=== PATIENT | female | born 1955 | race Caucasian/White ===

== ENCOUNTER 2017-01-14 00:15 | Emergency (ER) | payer OTHER ==
[2017-01-14 01:25] LABS: Hematocrit 42.9 % (37.0-47.0); Mean Cell Volume 92.7 fl (78-100); Mean Corpuscular Hemoglobin 30.2 pg (27-31); Mean Corpuscular Hgb Conc 32.6 g/dl (32-36); Mean Platelet Volume 11.8 fl (6.0-9.5); Neutrophil # 4.4 K/mm3 (1.3-6.0); Neutrophil % 61.3 % (42-75.0); Red Blood Count 4.63 M/mm3 (4.2-5.4); White Blood Count 7.1 K/mm3 (4.0-10.5)
--- NOTE | 2017-01-14 01:27 | ERNOTE ---
Neuro HPI ER Record Date of Service: 01/14/17 Presenting Symptoms: other - dysarthria and weakness onset 30 minutes prior to arrival approximately midnight Time Seen by Provider: 01/14/17 00:46 Source: patient, family Exam Limitations: no limitations Immunizations: IMMUNIZATION HX Immunizations Up to Date Yes History of Influenza Vaccine Yes Hx Pneumococcal Vaccination Yes Allergies/Adverse Reactions: Allergies Allergy/AdvReac Type Severity Reaction Status Date / Time Sulfa (Sulfonamide Allergy Intermediate Hives Verified 01/14/17 01:14 Antibiotics) Home Medications: HOME MEDICATIONS Levothyroxine Sodium [Levoxyl] 88 mcg PO DAILY 01/14/17 [Last Taken Unknown] - History of Present Illness Narrative: Present to ED as a stroke alert her initial glucose was 108. Date (Duration): 01/14/17 Time (Timing): 00:00 Last Date Known Well: 01/14/17 Last Time Known Well: 00:00 Onset: intermittent, better Severity: mild Context: other - patient is a 61-year-old female who has been at its her mother' s bedside for the last several days. Her mother is currently in hospice and just around midnight patient patient became increasingly agitated slurred speech was noted and facial weakness was noted as well. Stroke alert was called and patient brought to the emergency room for evaluation. - Character of Deficits New weakness: Present: facial (lt). Absent: RUE, RLE, LUE, LLE Altered sensation: Absent: RUE, RLE, LUE, LLE Additional Deficits: Present: impaired speech - dysarthria was noted by family. Baseline Cognition: Present: alert, oriented x 4 Baseline Gait: Present: walks w/o assistance Associated Symptoms: Reports: trouble thinking, none - extreme emotional stress due to passing of mother.. Denies: fever/chills, sweating, chest pain, neck/ back pain, headache, seizure, altered mental status Prior Treament: Denies: similar symptoms before - Patient's Past Medical History Patient History - Medical: Anxiety, Hypothyroidism Patient History - Cardiac/Respiratory: Hypertension, Hyperlipidemia, Other Patient History - Cancer: No Hx of Cancer Patient History - Surgical Procedures: Other Patient History - Other: None - Social History Living Situations: spouse Psych History: Hx of Anxiety Smoking Status: Never smoker Have you smoked in the past 12 months: No Do you dip or chew tobacco: No Alcohol Use: none Drug Use: none - Immunizations Immunizations Up to Date: Yes Hx Pneumococcal Vaccination: Yes History of Influenza Vaccine: Yes Physical Exam - Physical Exam General Appearance: Present: wd/wn, alert Head Exam: Present: normal inspection, no evidence of injury Eye Exam: Normal inspection: bilateral, PERRL: bilateral, EOMI: bilateral Ears, Nose, Throat: Present: normal ENT inspection, normal pharynx Neck: Present: normal inspection, nontender Respiratory: Present: no respiratory distress, normal breath sounds Cardiovascular/Chest: Present: regular rate, rhythm, no murmur, normal peripheral pulses Peripheral Pulses: N=norm/S=strong/W=weak/B=bound/A=absent: Carotid (R): Normal , Carotid (L): Normal, Dorsalis-pedis (R): Normal, Dorsalis-pedis (L): Normal Gastrointestinal/Abdominal: Present: normal bowel sounds, nontender, soft Rectal Exam: Present: deferred Back Exam: Present: normal inspection, normal range of motion, no CVA tenderness Extremity Exam: Present: normal inspection Neurological Exam: Present: alert, oriented, normal mood/affect, no motor/ sensory deficits DTR: N=norm/NB=norm/brisk/A=abs/DD=dull/dimin/HC=hyperactive: Bicep (R): Normal , Bicep (L): Normal, Knee (R): Normal, Knee (L): Normal, Ankle (R): Normal, Ankle (L): Normal Skin Exam: Present: normal color, warm/dry [place] Coma Scale - Assess Eye Opening: Spontaneous Motor: Obeys Commands Verbal: Oriented - Total Coma Scale Total: 15 Initial Stroke Assessment - NIH Stroke Scale Level of Consciousness: Alert LOC Questions (Year and Age): Answers both correctly LOC Commands (open/close eyes/fist): Performs both correctly Lateral Gaze Paresis: None Visual Field Loss: No visual loss Facial Palsy: Minor paralysis - left facial Right Arm Motor (10 sec hold): No drift Left Arm Motor (10 sec hold): No drift Right Leg Motor (5 sec hold): No drift Left Leg Motor (5 sec hold): No drift Limb Ataxia (finger/nose heel/toro): Absent If present, ataxia in:: Right arm Sensory Loss (pinprick arms/legs/face): No sensory loss Language Aphasia (description/naming/reading): Mild, yet understandable Dysarthria (speech clarity): Normal articulation Neglect Inattention (visual/tactile/auditory/spatial/person): No neglect - NIH stroke scale 2 Initial Stroke Scale Score:: 2 ED Progress - Results and Orders Patient's Lab Results:: I have reviewed the patient's lab results. Results and Orders: Laboratory Tests 01/14/17 01/14/17 01/14/17 00:10 00:10 00:10 WBC 7.1 RBC 4.63 Hgb 14.0 Hct 42.9 MCV 92.7 MCH 30.2 MCHC 32.6 RDW 13.0 Plt Count 157 MPV 11.8 H Immature Gran % (Auto) 0.10 Immature Gran # (Auto) 0.01 Neutrophils % 61.3 Lymphocytes % 28.3 Monocytes % 6.7 Eosinophils % 3.2 H Basophils % 0.4 Nucleated RBC % 0.0 Neutrophils # 4.4 Lymphocytes # 2.0 Monocytes # 0.5 Eosinophils # 0.2 Absolute Basophils 0.0 PT 10.2 INR (Anticoag Therapy) 0.98 PTT (Alberto) 21.9 L Sodium 143 H Plasma Sodium 143 H Potassium 3.9 Chloride 105 Carbon Dioxide 25.9 Anion Gap 16.0 H BUN 16 Creatinine 1.02 Est GFR (Non-Af Amer) 59 L BUN/Creatinine Ratio 15.7 Random Glucose 119 H Calcium 8.9 Calcium Adj for Albumin 8.7 Total Bilirubin 0.9 AST 28 ALT 34 Alkaline Phosphatase 95 Total Protein 7.6 Albumin 3.9 - Vital Signs Patient's Vital Signs:: I have reviewed the patient's vital signs. Vital Signs: Vital Signs 01/14/17 00:55 Pulse Rate 81 Respiratory 20 Rate Blood Pressure 175/82 O2 Sat by Pulse 98 Oximetry - X-Ray X-Ray #1 X-Ray: chest Interpretation: Interp. by me, Reviewed by me X-ray Comments: [facility] PATIENT RADIOLOGY STUDY REPORT Patient Patient Name:OSCAR LUCIO Date: 1955 Sex: F Order Number: [id number] Unique Exam ID: [id number] Exam Requested: CXRSINGLE - Chest Single View * Date Scheduled: 01-14-2017 02:26 AM Study Priority: Requesting Service: Requesting Physician: Jackelin Koenig Reason for Exam: TIA Possible CVA Radiological Report : [place] [address] NAME: OSCAR LUCIO : 1955 MR #: [id number] CC: Jackelin Koenig DO LOC: ADM DATE: X-RAY REPORT [id number] RAD/Chest Single View * Exam Date: 01/14/2017 02:26 Ordering Physician: Jackelin Koenig History: TIA Possible CVA. Additional history provided by the technologist: Weakness. Technique: Frontal views of the chest are evaluated. (1) views. Comparison: None. Findings: The lungs are mildly hypoinflated. No focal consolidation. No pneumothorax or pleural effusion. The mediastinum, cardiac silhouette and pulmonary vascularity are within normal limits. The osseous structures are remarkable for degenerative changes. No acute osseous findings. IMPRESSION: No acute pulmonary findings. Mild hypoventilatory changes. Electronically signed by Adonay Walker D.O.. Adonay Walker DO Dict: 01/14/17 0658 Typed: 01/14/17 0658/ 01/14/17 0659 01/14/17 07 [ rep ct labl] [ rep ct name suf] [ rep ct add1] [ rep ct add2] [ rep ct city], [ rep ct state] [ rep ct zip] Approved by: Adonay Walker Approval Date: 01-14-2017 Approval Time: 06:58 AM THIS REPORT WAS RECEIVED FROM THE [employer] [facility] - CT/Ultrasound CT/Ultrasound Narrative: CT report from [facility] Dr Fahad Porter MD, Impression : in intracranial abnomality - Progress/Reassessment Chief Complaint: CerebroVascular Accident Progress:: Improved - Transfer of Care Expected Disposition: Discharge Plan - Plan Plan: Patient is stable for discharge with care of her family. Departure Clinical Impression: Hypovolemia dehydration, Grief reaction - Departure Disposition: Home self-care Condition: Good Instructions: Rehydration, Adult Additional Instructions: You may return to Emergency Department if you have any neurological problems.
[2017-01-14 01:33] LABS: Prothrombin Time (Patient) 10.2 Seconds (9.4-11.4)
[2017-01-14 01:45] LABS: INR 0.98 INR (0.90-1.10); Partial Thrombolplastin Time 21.9 Seconds (24-32)
[2017-01-14 01:46] LABS: Albumin * 3.9 gm/dl (3.4-5.0); BUN/Creatinine Ratio 15.7 (9.0-21.6); Bilirubin, Total 0.9 mg/dL (0.0-1.1); Ca. Corrected For Albumin 8.7 mg/dL (8.4-10.2); Calcium * 8.9 mg/dL (7.9-10.9); Carbon Dioxide 25.9 mmol/L (24-32.6); Potassium 3.9 mmol/L (3.4-4.6); Total Protein 7.6 gm/dL (6.2-8.2)
[2017-01-14 01:50] LABS: Platelet Count 157 K/mm3 (150-450)
[2017-01-14] MEDS ORDERED: NORMAL SALINE 250 ML IV ONE (02:00)
[2017-01-14 02:32] VITALS: BP 143/64
== END 2017-01-14 02:44 | disposition home or self-care (01) ==
LOC: ER 00:15
DX: E86.1 Hypovolemia (principal); F43.20 Adjustment disorder, unspecified; R47.81 Slurred speech; E03.9 Hypothyroidism, unspecified; R40.2412 Glasgow coma scale score 13-15, at arrival to emergency department; R29.702 NIHSS score 2